=== PATIENT | male | born 1945 | race Hispanic/Latino ===

== ENCOUNTER 2020-01-18 01:31 | Inpatient (IN) | payer MEDICARE, OTHER ==
--- NOTE | 2020-01-18 02:28 | PDOC.FPRHP ---
- History of Present Illness Chief Complaint: new O2 requirement History of Present Illness: 74 yo M with PMH HTN, HLD is transferred from [facility] ED for new O2 requirement, COVID+. Symptom onset 01/12. Reports nonproductive cough, subjective fever/chills, 3 episodes watery diarrhea, nausea, vomiting, weakness , fatigue, lower leg muscle cramps. is COVID + and had symptoms prior to patient. Denies SOB, difficulty breathing. Decreased food intake but tolerating liquids well over past few days. ED Course: Dexamethasone 6mg, rocephin 1g, azithromycin 500, zofran, 500ml NS, tylenol - Allergies/Adverse Reactions Allergies Allergy/AdvReac Type Severity Reaction Status Date / Time adhesive Allergy Verified 01/18/20 04:01 naproxen Allergy Verified 01/18/20 04:01 - Home Medications Medication Instructions Recorded Confirmed Type Atenolol 25 mg PO DAILY 01/18/20 01/18/20 History Atorvastatin Calcium 10 mg PO HS 01/18/20 01/18/20 History Fish Oil 1,000 mg PO DAILY 01/18/20 01/18/20 History Losartan [Cozaar] 1 tab PO DAILY 01/18/20 01/18/20 History - History PMHx:HTN, HLD PSHx: L shoulder, knee arthroscopy, hernia repair, cholecystectomy FHx: sister-DM Social: ~1 beer twice weekly, no drug use, prior tobacco use, 40 pack yr hx and quit age 37 - Review of Systems General: reports: fever/chills, weight/appetite/sleep changes, fatigue Eyes: denies: vision changes ENT: denies: nasal congestion, rhinorrhea Respiratory: reports: cough. denies: shortness of breath Cardiovascular: denies: chest pain, palpitation, edema Gastrointestinal: reports: nausea, vomiting, diarrhea. denies: abdominal pain Genitourinary: denies: incontinence, dysuria Skin: denies: rashes, lesions Musculoskeletal: reports: arthritis/arthralgias. denies: pain Neurological: reports: weakness. denies: syncope - Vital signs BP: 138/73 HR: 59 RR: 20 Tmax: 99.3 Pox: 97% on 2L Wt: 101 kg - Physical Exam Constitutional: NAD, awake, alert and oriented HEENT: normocephalic and atraumatic, EOMI Neck: supple Heart: RRR, normal S1/S2, no edema Lungs: no respiratory distress, good air movement (crackles at bases, exam limited with disposable stethescope) Abdomen: soft, non-tender, bowel sounds present Musculoskeletal: normal structure Neurological: no focal deficit Skin: good turgor FMR H&P: Results - Labs Result Diagrams: 01/18/20 05:14 01/18/20 05:14 FMR H&P: A/P - Plan 74 yo M COVID+ transferred from [place] and is admitted for observation of respiratory status d/t new O2 requirement. Acute hypoxic respiratory failure 2/2 COVID - day #6 of symptoms - requiring 2L, no home requirement or hx COPD, wean as tolerated - CXR with no acute changes, do not suspect superimposed infection at this time - EKG NSR, rate 76 - outside ED given dexamethasone, rocephin, azithromycin, zofran - continue dexamethasone, consider remdesivir in am - pending d-dimer, crp, ferritin. WBC 4.6 (76& neut, 20% lymph) - zofran prn N/V LEATHA vs CKD - unknown baseline - Cr 1.2 Elevated LFTs - AST 69, ALT 65 - continue to trend HTN - continue home losartan, atorvastatin. Hold home atenolol for now with pulse in 50s. IVF: LR@120 Ppx: lovenox 40 bid Diet: HH Code: FULL Attending: Babak Dispo: admit for observation, expected LOS <48h Addendum - Attending - Attending Attestation Date/Time: 01/18/20 1231 I personally evaluated the patient and discussed the management with Dr. Dangelo. I agree with the History, Examination, Assessment and Plan documented above with any addition or exceptions noted below. Patient here with known COVID disease who has new onset O2 requirement. Patient reported 1 day history of increased MEEHAN and found to have hypoxia at outside facility. His labs and imaging is c/w COVID pneumonia with hypoxia. D-dimer currently reassuring of milder disease course. Will attempt to wean O2 as tolerated. Continue usual COVID therapies and work on Remdesivir and plasma infusion. Hopefully if we can get him off O2 he may not need those therapies and have protracted course of illness.
[2020-01-18] MEDS ORDERED: Ondansetron ODT 4 MG TAB SL PRN (03:22)
[2020-01-18] MEDS ORDERED: Calcium Carbonate 500 MG ChewTAB PO PRN (03:22)
[2020-01-18] MEDS ORDERED: Loperamide HCl 2 MG CAP PO SCH (03:22)
[2020-01-18] MEDS ORDERED: Acetaminophen 325 MG TAB PO PRN ×2 (03:22)
[2020-01-18] MEDS ORDERED: Loperamide HCl 2 MG CAP PO PRN ×2 (03:22→04:30)
[2020-01-18] MEDS ORDERED: Ondansetron PF 4 MG/2 ML Vial IVP PRN ×2 (03:22)
[2020-01-18] MEDS ORDERED: Guaifenesin DM 100-10/5 ML UDCUP PO PRN (03:22)
[2020-01-18] MEDS ORDERED: Ondansetron ODT 4 MG TAB PO PRN (03:22)
[2020-01-18 03:49] VITALS: BMI 32.1
[2020-01-18 05:44] LABS: ALT (SGPT) 54 U/L (8-55); AST (SGOT) 50 U/L (5-34); Alkaline Phosphatase 40 U/L (40-110); Anion Gap 13 mmol/L (10-20); BUN (Urea Nitrogen) 12 mg/dL (8.4-25.7); Bilirubin, Total 0.9 mg/dL (0.2-1.2); CRP (Inflammatory) 3.22 mg/dL (= or < 0.5); Calc. Creatinine Clearance 105 mL/min (70-130); Calcium 8.9 mg/dL (7.8-10.44); Carbon Dioxide 24 mmol/L (23-31); Chloride 101 mmol/L (98-107); Estimated GFR-MDRD 82; Globulin 3.6 g/dL (2.4-3.5); Glucose 169 mg/dL (83-110); Potassium 3.7 mmol/L (3.5-5.1); Protein, Total 7.6 g/dL (5.8-8.1); Sodium 134 mmol/L (136-145)
[2020-01-18 06:32] LABS: Band 21 % (5-11); Hemoglobin 15.8 g/dL (14.0-18.0); Lymphocytes 22 % (21-51); MDiff Complete? YES; Mean Corpuscular HGB CONC 33.2 g/dL (32.0-36.0); Mean Corpuscular Hemoglobin 27.7 pg (27.0-31.0); Mean Corpuscular Volume 83.5 fL (78.0-98.0); Monocytes 5 % (0-10); Neutrophil 52 % (42-75); Platelet Count 106 thou/uL (130-400); Platelet Morphology Comment Appears Decreased; RBC Distribution Width 13.2 % (11.5-14.5); Red Blood Cell (RBC) Count 5.72 mill/uL (4.70-6.10); White Blood Cell (WBC) Count 2.9 thou/uL (4.8-10.8)
[2020-01-18] MEDS: Dexamethasone 4 MG TAB PO SCH (07:59)
[2020-01-18] MEDS: Losartan 25 MG TAB PO SCH (07:59)
[2020-01-18] MEDS: Fish Oil 1,000 MG CAP PO SCH (08:00)
[2020-01-18] MEDS ORDERED: Enoxaparin Sodium 40 MG/0.4 ML SYRINGE SC SCH (09:00)
[2020-01-18] MEDS ORDERED: Atenolol 25 MG TAB PO SCH (09:00)
[2020-01-18] MEDS: Enoxaparin Sodium 40 MG/0.4 ML SYRINGE SC SCH ×2 (12:44→20:16)
--- NOTE | 2020-01-18 16:43 | CON ---
DATE OF CONSULTATION: REASON FOR CONSULTATION: COVID infection. HISTORY OF PRESENT ILLNESS: A 74-year-old with history of hypertension and coronary artery disease, who contracted COVID from family member, developed symptoms of cough the week before last Friday. He was continued with a cough at home and did not take any precautions and had some diarrhea, and then on Friday or , he started having dyspnea. He was tested and positive, and was sent home and now he started having more dyspnea, so he is admitted for the first time to the hospital. He is feeling good now. He is on O2 supplementation. Denies headaches. He is not coughing as much. No dyspnea at rest. He is able to walk to the bathroom without difficulty. No sputum production. When he starts talking, he starts coughing a little bit more. No chest pain. No abdominal pain or diarrhea. No genitourinary symptoms noted. No joint symptoms. No neurological symptoms. PAST MEDICAL HISTORY: 1. Coronary artery disease. 2. Hypertension. 3. Hernia repair. 4. Shoulder repair. 5. Cholecystectomy. SOCIAL HISTORY: Retired. Lives in [place] close to [place] with family. ALLERGIES: ADHESIVE TAPE, IBUPROFEN, AND NAPROXEN. MEDICATIONS: He is currently on: 1. Lipitor. 2. Decadron 6 mg. 3. Lovenox 40 b.i.d. 4. Fish oil. 5. Imodium. 6. Cozaar. 7. Ondansetron. PHYSICAL EXAMINATION: VITAL SIGNS: He has been afebrile; O2 saturations are 96 to 97, there is one 89 , but that is room air, so on 1 L it goes up to 96; BP 140/80. SKIN: Normal. There is no lymphadenopathy. HEENT: Not remarkable. No remaining teeth. NECK: Supple. LUNGS: Symmetric air entry. Diminished breath sounds at bases. HEART: S1 and S2. Regular rate. No S3 or S4. ABDOMEN: Soft, not distended or tender. No ascites. No bladder distention. EXTREMITIES: No joint inflammatory activity. Moves all extremities equally. LABORATORY DATA: White cell count 2.9, hemoglobin 15.8, platelets 106,000, and 21% bands. D-dimer 0.39. Ferritin 928. CRP 322. IMAGING STUDIES: They are from [place]. The chest x-ray did not show any infiltrates. ASSESSMENT: 1. Coronary artery disease. 2. Hypertension. 3. COVID infection. Right now, he is at about 12 days of illness, so he does not meet criteria for remdesivir and probably will not require convalescent plasma since his O2 sats are good. continue Decadron and monitoring the usual markers every other day. He is looking good right now, so I believe we are getting out of the range for significant deterioration in the next few days. Job ID: [id number] MTDD
[2020-01-18] MEDS ORDERED: Atorvastatin Calcium 10 MG TAB PO SCH (21:00)
[2020-01-19 06:46] LABS: Band 26 % (5-11); Hemoglobin 15.1 g/dL (14.0-18.0); Lymphocytes 19 % (21-51); MDiff Complete? YES; Mean Corpuscular HGB CONC 33.5 g/dL (32.0-36.0); Mean Corpuscular Hemoglobin 28.1 pg (27.0-31.0); Mean Corpuscular Volume 83.9 fL (78.0-98.0); Mean Platelet Volume 9.5 fL (7.4-10.4); Metamyelocyte 1 % (0-0); Monocytes 2 % (0-10); Neutrophil 52 % (42-75); Platelet Count 117 thou/uL (130-400); Platelet Morphology Comment Appears Decreased; RBC Distribution Width 13.2 % (11.5-14.5); Red Blood Cell (RBC) Count 5.38 mill/uL (4.70-6.10); White Blood Cell (WBC) Count 8.8 thou/uL (4.8-10.8)
[2020-01-19 06:56] LABS: ALT (SGPT) 51 U/L (8-55); AST (SGOT) 46 U/L (5-34); Alkaline Phosphatase 40 U/L (40-110); Anion Gap 14 mmol/L (10-20); BUN (Urea Nitrogen) 20 mg/dL (8.4-25.7); Bilirubin, Total 1.2 mg/dL (0.2-1.2); Calc. Creatinine Clearance 96 mL/min (70-130); Carbon Dioxide 28 mmol/L (23-31); Chloride 98 mmol/L (98-107); Estimated GFR-MDRD 73; Globulin 3.4 g/dL (2.4-3.5); Glucose 107 mg/dL (83-110); Potassium 3.7 mmol/L (3.5-5.1); Protein, Total 7.4 g/dL (5.8-8.1); Sodium 136 mmol/L (136-145)
[2020-01-19] MEDS: Enoxaparin Sodium 40 MG/0.4 ML SYRINGE SC SCH (07:48)
[2020-01-19] MEDS: Fish Oil 1,000 MG CAP PO SCH (07:48)
[2020-01-19] MEDS: Losartan 25 MG TAB PO SCH ×2 (07:48→08:06)
[2020-01-19] MEDS: Dexamethasone 4 MG TAB PO SCH (07:48)
--- NOTE | 2020-01-19 08:01 | PDOC.FM ---
- Subjective Subjective: Patient doing well this morning. Continues to intermittently require oxygen supplementation via N/C. Complains of cough this morning. Denies any SOB, headache, chest pain, abdominal pain, n/v. He was able to receive convalescent plasma earlier this morning around 0300. - Objective MAR Reviewed: Yes Vital Signs & Weight: Vital Signs (12 hours) Temp Pulse Pulse Resp BP BP Pulse Ox 01/19/20 03:30 99.8 F H 74 18 124/64 01/19/20 02:50 99.3 F 82 18 128/77 01/19/20 02:49 99.8 F H 74 18 124/64 01/19/20 00:00 100.8 F H 76 18 122/67 93 L 01/18/20 21:00 98.1 F 67 18 143/76 H 90 L Weight Weight 101.605 kg I&O: 01/18/20 01/19/20 01/20/20 06:59 06:59 06:59 Intake Total 1090 Balance 1090 Result Diagrams: 01/19/20 05:37 01/19/20 05:37 Phys Exam - Physical Examination Constitutional: NAD HEENT: moist MMs, sclera anicteric Neck: no JVD, supple, full ROM Respiratory: no wheezing, clear to auscultation bilateral Cardiovascular: RRR, no significant murmur Gastrointestinal: soft, no distention, positive bowel sounds Musculoskeletal: no edema, pulses present Neurological: normal sensation, moves all 4 limbs Psychiatric: normal affect, A&O x 3 Skin: no rash, normal turgor Dx/Plan (1) Acute respiratory failure with hypoxia Code(s): J96.01 - ACUTE RESPIRATORY FAILURE WITH HYPOXIA Status: Acute (2) COVID-19 Code(s): U07.1 - COVID-19 Status: Acute (3) HTN (hypertension) Code(s): I10 - ESSENTIAL (PRIMARY) HYPERTENSION Status: Acute Qualifiers: Hypertension type: essential hypertension Qualified Code(s): I10 - Essential (primary) hypertension - Plan Plan: 74 yo M COVID+ transferred from [place] and is admitted d/t new O2 requirement. Acute hypoxic respiratory failure 2/2 COVID - COVID pos. on January 12, symptoms started on January 11 (day #7 of symptoms) - requiring 2L O2 via N/C, no home requirement previously or hx COPD, wean as tolerated - CXR with no acute changes, do not suspect superimposed infection at this time - EKG NSR, rate 76 - outside ED given dexamethasone, rocephin, azithromycin, zofran - continue dexamethasone - ID-Dr. Rodarte consulted for Remdesevir & Plasma -not candidate for Remdesevir -Convalescent plasma given at 0300 on 01/18 - D-dimer neg, crp 3.22, ferritin 928, WBC 4.6 (76& neut, 20% lymph) - zofran prn N/V LEATHA - likely 2/2 dehydration - admission Cr 1.2, unknown baseline - trend with labs Cr 1.2> 0.9 > 1.0 - improved with IVF LR Elevated LFTs - AST 69, ALT 65 - monitor on AM CMP HTN - continue home losartan, atorvastatin. Hold home atenolol for now with pulse in 50s. Social: Case Mgmt consulted to arrange for home oxygen. IVF: SL Ppx: lovenox 40 bid Diet: HH Code: FULL PCP: [facility] ([facility]) Dispo: Stable, admitted for inpatient on medical floor. Continue to observe respiratory status. CM to arrange for home O2. Anticipate discharge in <48h. Addendum - Attending - Attending Attestation Date/Time: 01/19/20 2367 I personally evaluated the patient and discussed the management with Dr. Rene. I agree with the History, Examination, Assessment and Plan documented above with any addition or exceptions noted below. Patinet overall stable. He is s/p plasma infusion for COVID. His O2 sats are stable. Working on getting outpatient O2 set up and he may be stable for discharge if continues to do well today.
--- NOTE | 2020-01-19 16:00 | PRG ---
DATE OF SERVICE: 01/19/2020 SUBJECTIVE: Mr. Toussaint is appearing comfortable at rest. Denies any chest pain. Coughing intermittently. No diarrhea. No abdominal pain. OBJECTIVE: VITAL SIGNS: T-max 100.8, now is 98.7; blood pressure 130/66; pulse 74; O2 saturations are at 92% with nasal cannula O2 at 2 L. LUNGS: Symmetric air entry. HEART: S1 and S2, regular rate. ABDOMEN: Soft. EXTREMITIES: Moves extremities equally. LABORATORY DATA: White cell count is 8.8, hemoglobin 15, platelets 117,000, and 26% bands. D-dimer is less than 0.27. Ferritin 298. CRP 3.22. ASSESSMENT AND DISCUSSION: COVID infection, coronary artery disease, hypertension, 13 days of COVID illness. Continue on Decadron, O2 supplementation, and DVT prophylaxis. He is on enhanced enoxaparin dosing. Job ID: [id number]
[2020-01-19 16:54] VITALS: BP 122/78; TEMP 98.6
--- NOTE | 2020-01-20 13:16 | DIS ---
DATE OF ADMISSION: 01/18/2020 DATE OF DISCHARGE: 01/19/2020 RESIDENT: Larisa Rene DO ADMITTING ATTENDING: Krishna Khan MD DISCHARGE ATTENDING: Krishna Khan MD CONSULTS: Infectious Disease, Dr. Rodarte. PROCEDURES: None. PRIMARY DIAGNOSES: Acute hypoxic respiratory failure secondary to COVID-19. SECONDARY DIAGNOSES: 1. Acute kidney injury. 2. Transaminitis. 3. Hypertension. DISCHARGE MEDICATIONS: 1. Atorvastatin 10 mg p.o. at bedtime. 2. Atenolol 25 mg p.o. daily. 3. Fish oil 1000 mg p.o. daily. 4. Losartan 25 mg p.o. daily. DISCONTINUED MEDICATIONS: None. HISTORY OF PRESENT ILLNESS/HOSPITAL COURSE: The patient is a 74-year-old male who presented to [facility] Emergency Department on January 18, 2020 as a transfer from [facility] ED for a new oxygen requirement. He was found to be positive for COVID-19 at that facility on January 17. Symptom onset began on January 12. The patient reported a nonproductive cough, fever, chills, three episodes of watery diarrhea, nausea, vomiting, weakness, fatigue, and lower leg cramps. The patient stated that his was also COVID positive and had symptoms prior to the patient. The patient denied any shortness of breath or difficulty breathing at time of admission. In the Emergency Department, the patient was given dexamethasone, Rocephin, azithromycin, Zofran, 500 mL normal saline bolus, and Tylenol. The patient was admitted to the medical floor for further monitoring of respiratory status. He was given Convalescent plasma on January 17. The patient initially required 2 L of oxygen via nasal cannula. Upon attempting to wean the patient off oxygen, his saturations would drop to 87% to 88%.At that time, Case Management was consulted to arrange for home oxygen, which was achieved on the afternoon of January 19, 2020. The patient otherwise progressed well and was stable for discharge home on the afternoon of January 19, 2020. Of note, the patient was noted to have an elevated creatinine of 1.2 on admission, consistent with an acute kidney injury. Upon receiving a bolus of fluids and continued monitoring, his creatinine trended down to 0.9 on discharge. DISPOSITION: Stable. DISCHARGE INSTRUCTIONS: 1. Location: Home. 2. Diet: Regular. 3. Activity: As tolerated. 4. Follow up with PCP in [place] in 3 to 5 days. Job ID: [id number] MTDD
== END 2020-01-19 18:22 | disposition home or self-care (01) | DRG 177 ==
LOC: ERS 01:31 → OBSVTOIN 02:16 → T4-B 02:16
PROVIDERS: ADMIT Internal Medicine; ATTEND Student in an Organized Health Care Education/Training Program
PROC: 8E0ZXY6 Isolation (ICD-10-PCS; principal; 2020-01-18)
PROC: 30233L1 Transfusion of Nonautologous Fresh Plasma into Peripheral Vein, Percutaneous Approach (ICD-10-PCS; 2020-01-19)
DX: U07.1 COVID-19 (principal); J96.01 Acute respiratory failure with hypoxia; N17.9 Acute kidney failure, unspecified; I12.9 Hypertensive chronic kidney disease with stage 1 through stage 4 chronic kidney disease, or unspecified chronic kidney disease; I25.10 Atherosclerotic heart disease of native coronary artery without angina pectoris; N18.9 Chronic kidney disease, unspecified; E86.0 Dehydration; R79.89 Other specified abnormal findings of blood chemistry; E78.5 Hyperlipidemia, unspecified; Z90.49 Acquired absence of other specified parts of digestive tract; Z88.6 Allergy status to analgesic agent; Z88.8 Allergy status to other drugs, medicaments and biological substances
CPT/HCPCS: 36415; 36430; 80053; 82728; 85007; 85027; 85379; 85520; 86140; 86850; 86900; 86901; 96372; 99284; G0378; J1650; J8540